=== PATIENT | female | born 1950 | race Caucasian/White ===

== ENCOUNTER → 2020-12-08 | Outpatient (CLI) | payer BC, OTHER ==
[~2020-12-08] MED LIST: ANTIVERT 25MG T25 MG PO; BACTROBAN OINT22 GM EXT; CARDIZEM CD240 MG PO; CETIRIZINE HCL10 MG PO; CLEOCIN HCL300 MG PO; CYMBALTA60 MG PO; DULOXETINE HCL30 MG PO; ESTRADIOL0.5 MG PO; FLECAINIDE ACE150 MG PO; FUROSEMIDE40 MG PO; HYDROXYZINE PAM25 MG PO; LOPRESSOR50 MG PO; METOPROLOL TAR100 MG PO; MICROZIDE12.5 MG PO; NITROGLYCERIN0.4 MG SL; PANTOPRAZOLE SO40 MG PO; PERCOCET 5/325 T1 EA PO; POTASSIUM CHLO10 MEQ PO; PRADAXA 150 MG150 MG PO; PROVERA 2.5 MG2.5 MG PO; TRAMADOL HCL50 MG PO; VENTOLIN HFA 66.7 GM INH; ZANAFLEX 4 MG TA4 MG PO; ZAROXOLYN/DIUL2.5 MG PO; ZOLPIDEM TARTRA10 MG PO
== END ==
LOC: US 16:00
DX: M79.606 Pain in leg, unspecified (principal); R60.9 Edema, unspecified
CPT/HCPCS: 93971

== ENCOUNTER → 2021-09-06 | Outpatient (CLI) | payer BC, OTHER | LOC: KOH-I 11:29 | DX: R26.89 Other abnormalities of gait and mobility (principal); R29.6 Repeated falls | CPT/HCPCS: 70450 ==

== ENCOUNTER → 2021-11-16 | Day surgery (SDC) | payer MEDICARE, OTHER ==
[~2021-11-16] MED LIST changes: +AMBIEN10 MG PO; +FLOVENT 110.088 GM/I INH; +IRON325 M1 PO; +KENALOG 0.5% CR15 GM EXT; +MELOXICAM7.5 MG PO; +NYSTATIN1 EAC4 MC; +PRADAXA150 MG PO; +VOLTAREN ARTHRI20 GM TP
== END | disposition home or self-care (01) ==
LOC: OR 05:32
DX: R19.5 Other fecal abnormalities (principal); I10 Essential (primary) hypertension; I48.0 Paroxysmal atrial fibrillation; E78.5 Hyperlipidemia, unspecified; K21.9 Gastro-esophageal reflux disease without esophagitis; M19.90 Unspecified osteoarthritis, unspecified site; J45.909 Unspecified asthma, uncomplicated; F41.9 Anxiety disorder, unspecified; F32.A Depression, unspecified; Z88.8 Allergy status to other drugs, medicaments and biological substances; Z79.1 Long term (current) use of non-steroidal anti-inflammatories (NSAID); Z79.899 Other long term (current) drug therapy; Z72.89 Other problems related to lifestyle
CPT/HCPCS: J2704